=== PATIENT | male | born 1975 | race Caucasian/White ===

== ENCOUNTER 2020-03-16 21:53 | Emergency (ER) | payer MEDICAID ==
[~2020-03-16] VITALS: Ht 180.3 cm; Wt 72.7 kg
[~2020-03-16 21:53] MED LIST: METH-360 PO
[2020-03-16 22:59] VITALS: BP 115/76
[2020-03-16] MEDS ORDERED: ketorolac tromethamine 15mg/ml inj. IM ONE (23:00)
[2020-03-16] MEDS ORDERED: CYCL-1 PO (23:16)
== END 2020-03-16 23:26 | disposition home or self-care (01) ==
LOC: ER 21:54
DX: M54.2 Cervicalgia (principal); G89.29 Other chronic pain; R51 Headache; Z56.0 Unemployment, unspecified; Z88.8 Allergy status to other drugs, medicaments and biological substances; Z79.899 Other long term (current) drug therapy
CPT/HCPCS: 70450; 72125; 96372; 99285; J1885